=== PATIENT | female | born 1940 | race Caucasian/White ===

== ENCOUNTER 2016-08-29 21:43 | Inpatient (IN) | payer BC ==
[~2016-08-29] VITALS: Ht 142.2 cm; Wt 62.2 kg
[~2016-08-29 21:43] MED LIST: ARIMIDEX1 MG PO; BENICAR40 MG PO; CLARITIN 1010 MG/TAB PO; FLONASEALLERGY NS; HCTZ 25MG TAB25 MG PO; IRON325 MG PO; NORCO 325 MG-51 TAB PO; NORVASC 5MG5 MG/TAB PO; PERCOCET 325 MG1 TA3 PO; PROTONIX 40MG T40 MG PO; ROXICODONE 55 MG/TAB PO; TRICOR145 MG PO; VITAMIN D32000 IU PO; ZOFRAN ODT4 MG PO
[2016-08-29 22:25] LABS: BASO % 0.4 % (0.0-2.0); EOS % 0.2 % (0-4.0); GRAN # 9.8 (1.4-6.5); GRAN % 87.1 % (42.2-75.2); HEMOGLOBIN 12.6 g/dl (12.5-16.0); LYMPH # 0.9 (1.2-3.4); LYMPH % 8.3 % (20.0-51.0); MEAN CELL VOLUME 92 fl (80.0-100.0); MEAN CORPUSCULAR HEMOGLOBIN 32 pg (27.0-31.0); MEAN CORPUSCULAR HGB CONC 35 g/dl (33.0-37.0); MEAN PLATELET VOLUME 10.2 fl (7.4-10.4); MONO # 0.4 (0.1-0.6); MONO % 3.5 % (1.7-9.3); PLATELET COUNT 180 K/mm3 (130-400); RED BLOOD COUNT 3.98 M/mm3 (4.10-5.30); REDCELL DISTRIBUTION WIDTH-CV 12.5 % (11.5-14.5); WHITE BLOOD COUNT 11.3 K/mm3 (4.8-10.8)
[2016-08-29 22:33] LABS: HEMATOCRIT 36.4 % (37.0-47.0)
[2016-08-29 22:38] LABS: ADJUSTED CALCIUM 9.9 mg/dL (8.4-10.2); ALANINE AMINOTRANSFERASE 34 U/L (9-52); ALBUMIN 4.4 gm/dL (3.5-5.0); ALKALINE PHOSPHATASE 130 U/L (50-136); AMYLASE 78 U/L (30-110); ANION GAP 14 mmol/L (7-16); BILIRUBIN,TOTAL 0.8 mg/dL (0.0-1.0); BLOOD UREA NITROGEN 22 mg/dL (7-17); CALCIUM 10.2 mg/dL (8.4-10.2); CARBON DIOXIDE 24 mmol/L (22-30); CHLORIDE 102 mmol/L (98-107); CREATININE, serum 0.59 mg/dL (0.52-1.25); GLUCOSE 183 mg/dL (74-106); POTASSIUM 3.5 mmol/L (3.4-5.0); SODIUM 140 mmol/L (137-145); TOTAL PROTEIN 7.5 gm/dL (6.4-8.2)
[2016-08-29 22:41] LABS: C-REACTIVE PROTEIN < 0.5 mg/dL (0.0-0.9)
[2016-08-29 22:50] LABS: ERYTHROCYTE SEDIMENTATION RATE 12 mm/hr (0-30)
[2016-08-29 22:54] LABS: PH 6 (5-8); SQUAMOUS EPITHELIAL 0-2 /hpf; URINE APPEARANCE Clear; URINE BACTERIA None Seen /hpf; URINE BILIRUBIN Negative (NEGATIVE); URINE BLOOD Negative (NEGATIVE); URINE COLOR Yellow; URINE GLUCOSE Negative (NEGATIVE); URINE KETONE Negative (NEGATIVE); URINE RBC 0-2 /hpf; URINE UROBILINOGEN Negative (NEGATIVE); URINE WBC 0-2 /hpf
[2016-08-29] MEDS ORDERED: ZOFRAN8 MG PO (23:36)
[2016-08-29] MEDS ORDERED: ULTRAM 50MG TAB50 MG PO (23:36)
[2016-08-30 01:55] VITALS: BP 144/67; PULSE 86; TEMP 98.5
[2016-08-30 05:25] VITALS: BP 161/76; PULSE 97; TEMP 98.2
[2016-08-30 09:54] VITALS: BP 165/81; PULSE 82; TEMP 97.3
[2016-08-30 13:49] VITALS: BP 171/73; PULSE 76; TEMP 98.1
[2016-08-30 17:20] VITALS: BP 145/70; PULSE 72; TEMP 98.2
[2016-08-30 20:38] VITALS: BP 168/75; PULSE 70; TEMP 99.3
[2016-08-31 02:00] VITALS: BP 166/75; PULSE 74; TEMP 98.7
[2016-08-31 08:31] VITALS: BP 154/75; PULSE 78; TEMP 99
[2016-08-31 09:05] LABS: BASO % 0.3 % (0.0-2.0); EOS % 0.4 % (0-4.0); GRAN # 7.4 (1.4-6.5); GRAN % 74.3 % (42.2-75.2); HEMOGLOBIN 12.4 g/dl (12.5-16.0); LYMPH # 1.2 (1.2-3.4); LYMPH % 12.5 % (20.0-51.0); MEAN CELL VOLUME 95 fl (80.0-100.0); MEAN CORPUSCULAR HEMOGLOBIN 32 pg (27.0-31.0); MEAN CORPUSCULAR HGB CONC 34 g/dl (33.0-37.0); MEAN PLATELET VOLUME 10.5 fl (7.4-10.4); MONO # 1.2 (0.1-0.6); MONO % 12.2 % (1.7-9.3); PLATELET COUNT 170 K/mm3 (130-400); RED BLOOD COUNT 3.88 M/mm3 (4.10-5.30); REDCELL DISTRIBUTION WIDTH-CV 13.1 % (11.5-14.5); WHITE BLOOD COUNT 9.9 K/mm3 (4.8-10.8)
[2016-08-31 09:10] LABS: HEMATOCRIT 36.7 % (37.0-47.0)
[2016-08-31 09:22] LABS: ADJUSTED CALCIUM 9.6 mg/dL (8.4-10.2); ALBUMIN 3.2 gm/dL (3.5-5.0); BILIRUBIN,TOTAL 1.5 mg/dL (0.0-1.0); CREATININE, serum 0.61 mg/dL (0.52-1.25); POTASSIUM 3.2 mmol/L (3.4-5.0); TOTAL PROTEIN 5.8 gm/dL (6.4-8.2)
[2016-08-31 12:16] VITALS: BP 168/78; PULSE 80; TEMP 98.2
[2016-08-31 16:17] VITALS: BP 168/85; PULSE 82; TEMP 97.7
[2016-08-31 21:31] VITALS: BP 148/75; PULSE 84; TEMP 99.2
[2016-09-01] VITALS (8 sets, daily range): BP systolic 147–178; BP diastolic 42–86; PULSE 71–89; TEMP 98.1–99.1
[2016-09-02 02:03] VITALS: BP 149/72; PULSE 68; TEMP 98.4
[2016-09-02 05:44] VITALS: BP 146/78; PULSE 76; TEMP 98.2
[2016-09-02 07:10] LABS: BASO % 0.4 % (0.0-2.0); EOS # 0.2 (0.0-0.7); EOS % 2.5 % (0-4.0); GRAN # 5.7 (1.4-6.5); GRAN % 67.3 % (42.2-75.2); HEMOGLOBIN 12.1 g/dl (12.5-16.0); LYMPH # 1.4 (1.2-3.4); LYMPH % 16.7 % (20.0-51.0); MEAN CELL VOLUME 93 fl (80.0-100.0); MEAN CORPUSCULAR HEMOGLOBIN 32 pg (27.0-31.0); MEAN CORPUSCULAR HGB CONC 34 g/dl (33.0-37.0); MEAN PLATELET VOLUME 10.7 fl (7.4-10.4); MONO # 1.1 (0.1-0.6); MONO % 12.5 % (1.7-9.3); PLATELET COUNT 156 K/mm3 (130-400); REDCELL DISTRIBUTION WIDTH-CV 12.4 % (11.5-14.5); WHITE BLOOD COUNT 8.4 K/mm3 (4.8-10.8)
[2016-09-02 07:25] LABS: CALCIUM 8.5 mg/dL (8.4-10.2); CREATININE, serum 0.64 mg/dL (0.52-1.25); MAGNESIUM 1.7 mg/dL (1.6-2.3); PHOSPHOROUS 3.3 mg/dL (2.5-4.5)
[2016-09-02 07:57] LABS: HEMATOCRIT 35.4 % (37.0-47.0)
[2016-09-02 08:13] LABS: POTASSIUM 2.7 mmol/L (3.4-5.0)
[2016-09-02 10:23] VITALS: BP 159/77; PULSE 66; TEMP 98.1
[2016-09-02 13:10] VITALS: BP 174/84; PULSE 77; TEMP 98.4
[2016-09-02 18:13] VITALS: BP 163/83; PULSE 76; TEMP 99.5
[2016-09-02 21:29] VITALS: BP 166/84; PULSE 75; TEMP 98.5
[2016-09-03] VITALS (8 sets, daily range): BP systolic 138–164; BP diastolic 62–79; PULSE 70–88; TEMP 98.2–98.5
[2016-09-03 07:35] LABS: BASO % 0.3 % (0.0-2.0); EOS # 0.3 (0.0-0.7); EOS % 2.8 % (0-4.0); GRAN # 7.9 (1.4-6.5); HEMATOCRIT 37.1 % (37.0-47.0); HEMOGLOBIN 12.5 g/dl (12.5-16.0); LYMPH # 1.4 (1.2-3.4); LYMPH % 12.6 % (20.0-51.0); MEAN CELL VOLUME 95 fl (80.0-100.0); MEAN CORPUSCULAR HEMOGLOBIN 32 pg (27.0-31.0); MEAN CORPUSCULAR HGB CONC 34 g/dl (33.0-37.0); MEAN PLATELET VOLUME 10.2 fl (7.4-10.4); MONO # 1.1 (0.1-0.6); MONO % 10.6 % (1.7-9.3); PLATELET COUNT 173 K/mm3 (130-400); RED BLOOD COUNT 3.92 M/mm3 (4.10-5.30); REDCELL DISTRIBUTION WIDTH-CV 12.3 % (11.5-14.5); WHITE BLOOD COUNT 10.8 K/mm3 (4.8-10.8)
[2016-09-03 07:46] LABS: CALCIUM 8.6 mg/dL (8.4-10.2); CREATININE, serum 0.61 mg/dL (0.52-1.25); PHOSPHOROUS 4.3 mg/dL (2.5-4.5); POTASSIUM 3.5 mmol/L (3.4-5.0)
[2016-09-04] VITALS (8 sets, daily range): BP systolic 128–153; BP diastolic 64–72; PULSE 65–86; TEMP 97–98.6
[2016-09-04 08:18] LABS: ALBUMIN 2.6 gm/dL (3.5-5.0); CALCIUM 7.9 mg/dL (8.4-10.2); CREATININE, serum 0.59 mg/dL (0.52-1.25); MAGNESIUM 1.6 mg/dL (1.6-2.3); PHOSPHOROUS 4.2 mg/dL (2.5-4.5); POTASSIUM 3.6 mmol/L (3.4-5.0)
[2016-09-04 12:00] LABS: MEAN CELL VOLUME 93 fl (80.0-100.0); MEAN CORPUSCULAR HGB CONC 35 g/dl (33.0-37.0); MEAN PLATELET VOLUME 10.8 fl (7.4-10.4); PLATELET COUNT 166 K/mm3 (130-400); RED BLOOD COUNT 3.41 M/mm3 (4.10-5.30); REDCELL DISTRIBUTION WIDTH-CV 12.4 % (11.5-14.5); WHITE BLOOD COUNT 11.2 K/mm3 (4.8-10.8)
[2016-09-04 12:01] LABS: HEMATOCRIT 31.7 % (37.0-47.0); MEAN CORPUSCULAR HEMOGLOBIN 32 pg (27.0-31.0)
[2016-09-04 12:03] LABS: ADD PATHOLOGY DIFF REVIEW NO
[2016-09-04 13:18] LABS: BAND 9 % (0-10); NEUTROPHILS 74 % (42.0-75.2); TOTAL CELLS COUNTED 100
[2016-09-04 13:20] LABS: PLATELET ESTIMATE NORMAL (NORMAL)
[2016-09-05 01:28] VITALS: BP 125/61; PULSE 76; TEMP 97.5
[2016-09-05 04:50] VITALS: BP 131/67; PULSE 77; TEMP 98.2
[2016-09-05 09:59] VITALS: BP 137/71; PULSE 76; TEMP 98.5
[2016-09-05 13:51] VITALS: BP 116/72; PULSE 68; TEMP 97.9
[2016-09-05 18:34] VITALS: BP 128/66; PULSE 73; TEMP 98.3
[2016-09-05 22:13] VITALS: BP 134/65; PULSE 73; TEMP 98
[2016-09-06 04:39] VITALS: BP 142/66; PULSE 80; TEMP 98.4
[2016-09-06 07:31] LABS: BASO % 0.2 % (0.0-2.0); EOS # 0.4 (0.0-0.7); EOS % 2.6 % (0-4.0); GRAN # 10.8 (1.4-6.5); GRAN % 80.9 % (42.2-75.2); LYMPH # 1.1 (1.2-3.4); LYMPH % 8.5 % (20.0-51.0); MEAN CELL VOLUME 95 fl (80.0-100.0); MEAN CORPUSCULAR HGB CONC 34 g/dl (33.0-37.0); MEAN PLATELET VOLUME 11.2 fl (7.4-10.4); MONO % 7.3 % (1.7-9.3); PLATELET COUNT 171 K/mm3 (130-400); RED BLOOD COUNT 3.24 M/mm3 (4.10-5.30); REDCELL DISTRIBUTION WIDTH-CV 12.8 % (11.5-14.5); WHITE BLOOD COUNT 13.3 K/mm3 (4.8-10.8)
[2016-09-06 07:39] LABS: HEMATOCRIT 30.9 % (37.0-47.0); HEMOGLOBIN 10.5 g/dl (12.5-16.0); MEAN CORPUSCULAR HEMOGLOBIN 32 pg (27.0-31.0)
[2016-09-06 07:45] LABS: CALCIUM 7.9 mg/dL (8.4-10.2); CREATININE, serum 0.55 mg/dL (0.52-1.25); POTASSIUM 3.3 mmol/L (3.4-5.0)
[2016-09-06 10:08] VITALS: BP 134/62; PULSE 80; TEMP 99.3
[2016-09-06 13:36] VITALS: BP 140/60; PULSE 70; TEMP 98.1
[2016-09-06 16:55] VITALS: BP 145/77; PULSE 77; TEMP 98.5
[2016-09-06 21:52] VITALS: BP 130/79; PULSE 73; TEMP 98.3
[2016-09-07 05:25] VITALS: BP 153/65; PULSE 67; TEMP 98.3
[2016-09-07 09:28] VITALS: BP 151/63; PULSE 72; TEMP 98.3
[2016-09-07 13:48] VITALS: BP 146/87; PULSE 77; TEMP 98.9
[2016-09-07 18:00] VITALS: BP 148/64; PULSE 88; TEMP 97.9
[2016-09-07 21:39] VITALS: BP 147/64; PULSE 73; TEMP 98.3
[2016-09-08 06:17] VITALS: BP 169/81; PULSE 73; TEMP 98.2
[2016-09-08 09:20] VITALS: BP 161/78; PULSE 76; TEMP 99.5
[2016-09-08] MEDS ORDERED: NORCO 325 MG-51 TAB PO (11:58)
== END 2016-09-08 13:40 | disposition home or self-care (01) | DRG 355 ==
LOC: COL.ER 21:43 → SURG 23:55
PROVIDERS: Emergency Medicine; Surgery
PROC: 0WQF0ZZ Repair Abdominal Wall, Open Approach (ICD-10-PCS; 2016-09-03)
PROC: 0WUF0JZ Supplement Abdominal Wall with Synthetic Substitute, Open Approach (ICD-10-PCS; principal; 2016-09-03 14:30)
DX: K43.0 Incisional hernia with obstruction, without gangrene (principal); I10 Essential (primary) hypertension; E87.6 Hypokalemia
CPT/HCPCS: A4315; A9284; C1781; J1100; J1170; J1650; J2250; J2270; J2405; J2704; J2765; J2795; J3010; J3480; J7030; J7120; Q9967

== ENCOUNTER 2017-02-06 13:24 | Emergency (ER) | payer BC ==
[~2017-02-06] VITALS: Ht 147.3 cm; Wt 59.1 kg
[~2017-02-06 13:24] MED LIST changes: +ULTRAM 50MG TAB50 MG PO; +ZOFRAN8 MG PO
[2017-02-06 13:33] VITALS: BP 159/68; TEMP 98.7
[2017-02-06 14:27] LABS: BASO # 0.1 (0.0-0.2); BASO % 0.4 % (0.0-2.0); EOS # 0.1 (0.0-0.7); EOS % 0.7 % (0-4.0); GRAN % 85.2 % (42.2-75.2); HEMOGLOBIN 12.9 g/dl (12.5-16.0); LYMPH # 0.9 (1.2-3.4); LYMPH % 6.6 % (20.0-51.0); MEAN CELL VOLUME 94 fl (80.0-100.0); MEAN CORPUSCULAR HEMOGLOBIN 32 pg (27.0-31.0); MEAN CORPUSCULAR HGB CONC 34 g/dl (33.0-37.0); MEAN PLATELET VOLUME 10.2 fl (7.4-10.4); MONO # 0.9 (0.1-0.6); MONO % 6.7 % (1.7-9.3); PLATELET COUNT 180 K/mm3 (130-400); RED BLOOD COUNT 4.04 M/mm3 (4.10-5.30); REDCELL DISTRIBUTION WIDTH-CV 12.7 % (11.5-14.5)
[2017-02-06] MEDS ORDERED: PRIL40 PO (14:40)
[2017-02-06] MEDS ORDERED: ZOFRAN8 MG PO (14:40)
[2017-02-06 14:41] LABS: ADJUSTED CALCIUM 9.7 mg/dL (8.4-10.2); ALANINE AMINOTRANSFERASE 87 U/L (9-52); ALKALINE PHOSPHATASE 115 U/L (50-136); ANION GAP 13 mmol/L (7-16); BILIRUBIN,TOTAL 0.7 mg/dL (0.0-1.0); BLOOD UREA NITROGEN 21 mg/dL (7-17); CALCIUM 9.7 mg/dL (8.4-10.2); CARBON DIOXIDE 23 mmol/L (22-30); CHLORIDE 105 mmol/L (98-107); CREATININE, serum 0.82 mg/dL (0.52-1.25); GLUCOSE 151 mg/dL (74-106); LIPASE 151 U/L (23-300); POTASSIUM 3.8 mmol/L (3.4-5.0); SODIUM 141 mmol/L (137-145); TOTAL PROTEIN 6.8 gm/dL (6.4-8.2)
[2017-02-06 14:55] LABS: TROPONIN-I < 0.012 ng/mL (0.000-0.034)
[2017-02-06] MEDS ORDERED: CIPRO 500MG TA500 MG PO (15:41)
[2017-02-06] MEDS ORDERED: FLAGYL500 MG PO (15:41)
[2017-02-06 16:17] VITALS: PULSE 71
== END 2017-02-06 16:17 | disposition home or self-care (01) ==
LOC: COL.ER 13:24
PROVIDERS: Emergency Medicine
DX: K52.9 Noninfective gastroenteritis and colitis, unspecified (principal); R11.2 Nausea with vomiting, unspecified
CPT/HCPCS: C9113; J2405; J7030; Q9967

== ENCOUNTER → 2017-04-10 | Outpatient (CLI) | payer BC ==
[~2017-04-10] MED LIST changes: +CIPRO 500MG TA500 MG PO; +FLAGYL500 MG PO; +PRIL40 PO
== END ==
LOC: MC.RAD 09:52
DX: Z08 Encounter for follow-up examination after completed treatment for malignant neoplasm (principal); R92.1 Mammographic calcification found on diagnostic imaging of breast; Z85.3 Personal history of malignant neoplasm of breast; Z92.3 Personal history of irradiation; Z98.890 Other specified postprocedural states

== ENCOUNTER 2018-04-06 13:44 | Emergency (ER) | payer BC ==
[~2018-04-06] VITALS: Ht 147.3 cm; Wt 64.6 kg
[2018-04-06 13:47] VITALS: TEMP 98.6
[2018-04-06 14:51] LABS: BASO # 0.1 (0.0-0.2); BASO % 0.8 % (0.0-2.0); EOS # 0.2 (0.0-0.7); EOS % 2.7 % (0-4.0); GRAN # 6.6 (1.4-6.5); HEMOGLOBIN 11.5 g/dl (12.5-16.0); LYMPH # 1.3 (1.2-3.4); LYMPH % 14.7 % (20.0-51.0); MEAN CELL VOLUME 95 fl (80.0-100.0); MEAN CORPUSCULAR HEMOGLOBIN 31 pg (27.0-31.0); MEAN CORPUSCULAR HGB CONC 33 g/dl (33.0-37.0); MEAN PLATELET VOLUME 10.2 fl (7.4-10.4); MONO # 0.7 (0.1-0.6); MONO % 8.1 % (1.7-9.3); PLATELET COUNT 234 K/mm3 (130-400); RED BLOOD COUNT 3.69 M/mm3 (4.10-5.30); REDCELL DISTRIBUTION WIDTH-CV 12.3 % (11.5-14.5)
[2018-04-06 15:03] LABS: ALBUMIN 3.9 gm/dL (3.5-5.0); BILIRUBIN,TOTAL 0.6 mg/dL (0.0-1.0); C-REACTIVE PROTEIN 1.9 mg/dL (0.0-0.9); CALCIUM 9.2 mg/dL (8.4-10.2); CREATININE, serum 0.86 mg/dL (0.52-1.25); POTASSIUM 3.9 mmol/L (3.4-5.0); TOTAL PROTEIN 7.3 gm/dL (6.4-8.2)
[2018-04-06 15:20] LABS: ERYTHROCYTE SEDIMENTATION RATE 44 mm/hr (0-30)
[2018-04-06] MEDS ORDERED: DOXYCYCLINE 10100 MG PO (17:19)
[2018-04-06 17:52] VITALS: BP 155/92; PULSE 78
== END 2018-04-06 17:53 | disposition home or self-care (01) ==
LOC: COL.ER 13:44
PROVIDERS: Emergency Medicine
DX: L03.311 Cellulitis of abdominal wall (principal); I10 Essential (primary) hypertension; K21.9 Gastro-esophageal reflux disease without esophagitis; E78.5 Hyperlipidemia, unspecified; Z90.49 Acquired absence of other specified parts of digestive tract; Z90.710 Acquired absence of both cervix and uterus; Z87.19 Personal history of other diseases of the digestive system
CPT/HCPCS: Q9967

== ENCOUNTER → 2018-04-09 | Outpatient (CLI) | payer BC ==
[~2018-04-09] MED LIST changes: +DOXYCYCLINE 10100 MG PO
== END ==
LOC: ZCOL.LAB 17:19
DX: K65.1 Peritoneal abscess (principal)

== ENCOUNTER → 2018-04-10 | Emergency (ER) | payer BC | LOC: COL.ER 14:22 | DX: Z72.9 Problem related to lifestyle, unspecified (principal) ==

== ENCOUNTER 2018-04-30 22:56 | Emergency (ER) | payer BC ==
[2018-04-30 23:00] VITALS: TEMP 97.8
[2018-05-01 00:37] VITALS: BP 148/90
[2018-05-01] MEDS ORDERED: NORCO 325 MG-51 TAB PO (02:19)
[2018-05-01 03:00] VITALS: PULSE 65
[2018-05-04] MEDS ORDERED: VITAMIND3 5000 (11:53)
[2018-05-04] MEDS ORDERED: OSCAL 500 TAB500 MG PO (11:55)
[2018-05-04] MEDS ORDERED: PRENATAL FORMU1 EAC3 PO (11:55)
[2018-05-04] MEDS ORDERED: TYLENOL 500MG500 MG PO (11:55)
== END 2018-05-01 03:00 | disposition home or self-care (01) ==
LOC: COL.ER 22:56
DX: S52.501A Unspecified fracture of the lower end of right radius, initial encounter for closed fracture (principal); S00.83XA Contusion of other part of head, initial encounter; S20.212A Contusion of left front wall of thorax, initial encounter; E78.5 Hyperlipidemia, unspecified; I10 Essential (primary) hypertension; Z85.3 Personal history of malignant neoplasm of breast; Z79.51 Long term (current) use of inhaled steroids; W18.39XA Other fall on same level, initial encounter; Y92.009 Unspecified place in unspecified non-institutional (private) residence as the place of occurrence of the external cause
CPT/HCPCS: A9284; J3010; Q4021

== ENCOUNTER 2018-05-29 07:56 | Inpatient (IN) | payer BC ==
[2018-05-29] VITALS (12 sets, daily range): BP systolic 128–152; BP diastolic 62–77; PULSE 67–80; TEMP 97.8–98.7
[~2018-05-29] VITALS: Ht 147.3 cm; Wt 71.3 kg
[~2018-05-29 07:56] MED LIST changes: +OSCAL 500 TAB500 MG PO; +PRENATAL FORMU1 EAC3 PO; +TYLENOL 500MG500 MG PO; +VITAMIND3 5000
[2018-05-30] VITALS (8 sets, daily range): BP systolic 121–152; BP diastolic 54–86; PULSE 61–76; TEMP 97.4–99.1
[2018-05-31] VITALS (7 sets, daily range): BP systolic 118–153; BP diastolic 56–81; PULSE 65–78; TEMP 98–98.5
[2018-06-01 05:35] VITALS: BP 136/72; PULSE 66; TEMP 98
[2018-06-01 07:40] VITALS: BP 144/69; PULSE 68; TEMP 98.2
[2018-06-01 12:14] VITALS: BP 139/70; PULSE 71; TEMP 98.6
== END 2018-06-01 16:15 | disposition home or self-care (01) | DRG 908 ==
LOC: SDCO 07:56 → SURG 13:44 → SDCO 05-30 09:59 → SURG 05-30 10:00 → SDCO 05-31 13:44 → SURG 05-31 13:44
PROVIDERS: Surgery
PROC: 0WPF0JZ Removal of Synthetic Substitute from Abdominal Wall, Open Approach (ICD-10-PCS; principal; 2018-05-29 10:00)
PROC: 0DB80ZZ Excision of Small Intestine, Open Approach (ICD-10-PCS; 2018-05-29 10:00)
DX: T85.79XA Infection and inflammatory reaction due to other internal prosthetic devices, implants and grafts, initial encounter (principal); K63.2 Fistula of intestine; L02.211 Cutaneous abscess of abdominal wall; I10 Essential (primary) hypertension; Z85.3 Personal history of malignant neoplasm of breast; E78.5 Hyperlipidemia, unspecified
CPT/HCPCS: OP; A4314; C1765; J0690; J1100; J1650; J2405; J2704; J3010; J7042; J7120

== ENCOUNTER → 2022-03-06 | Outpatient (CLI) | payer BC | LOC: MC.RAD 13:10 | DX: Z12.31 Encounter for screening mammogram for malignant neoplasm of breast (principal) ==